=== PATIENT | female | born 1995 | race Caucasian/White ===

== ENCOUNTER 2021-03-15 15:26 | Emergency (ER) | payer OTHER ==
[2021-03-15] MEDS ORDERED: LIDOCAINE HCL10 ML MM (18:12)
[2021-03-15] MEDS ORDERED: BACTRIM DS TAB1 EACH PO (18:12)
[2021-03-17 12:14] LABS: HBSAG SCREEN Negative (Negative); HEP A AB, IGM Negative (Negative); HEP B CORE AB, IGM Negative (Negative); HEP C VIRUS AB 0.2 (0.0-0.9)
[2021-03-17 17:08] LABS: FINAL INTERPRETATION Negative (.); HIV 1 AB Negative (Negative); HIV 2 AB Negative (Negative)
[2021-03-17 18:09] LABS: RPR Reactive (Non Reactive); TREPONEMA PALLIDUM ANTIBODIES Reactive (Non Reactive)
[2021-03-17 21:09] LABS: CHLAMYDIA TRACHOMATIS, NAA Negative (Negative); NEISSERIA GONORRHOEAE, NAA Negative (Negative)
== END 2021-03-15 18:40 | disposition home or self-care (01) ==
LOC: ER1 15:26
PROVIDERS: Nurse Practitioner
DX: N76.2 Acute vulvitis (principal); A53.9 Syphilis, unspecified; Z72.51 High risk heterosexual behavior; F17.210 Nicotine dependence, cigarettes, uncomplicated
CPT/HCPCS: 80074; 86592; 86593; 86701; 86702; 86780; 96372; 99283; J0561; J0696; J2001